=== PATIENT | male | born 1955 | race Caucasian/White ===

== ENCOUNTER 2018-05-29 12:03 | Outpatient (CLI) | payer OTHER ==
--- NOTE | 2018-05-29 14:28 | CT Report ---
Reason: ENCOUNTER FOR SCREENING FOR MALIGNANT NEOPLASM OF Procedure Date: 05/29/2018 Accession Number: [id number] / [id number] Procedure: CT - Low Dose Lung Cancer Screen CPT Code: FULL RESULT: EXAM CT LUNG SCREEN EXAM DATE: 05/29/2018 12:35 PM. HISTORY: 62-year-old patient with 30+-pack-year smoking history. Currently smoking: No. Years since quittin. COMPARISON: None. TECHNIQUE: CT examination of the entire thorax without contrast was performed using low-dose technique. Thin section coronal, axial, sagittal and MIP axial images were obtained. In accordance with CT protocol optimization, one or more of the following dose reduction techniques were utilized for this exam: automated exposure control, adjustment of mA and/or KV based on patient size, or use of iterative reconstructive technique. FINDINGS: Nodules: Right upper lobe: None. Right middle lobe: None. Right lower lobe: Subtle peribronchovascular tree-in-bud opacity seen at the medial aspect of the base (4/143) Left upper lobe: 3 mm lingular nodule (4/143). Left lower lobe: Subtle peribronchovascular groundglass opacities and tree-in-bud opacities seen at the left base (4/138). Emphysema: Mild apical centrilobular and paraseptal emphysema. Pleura: Unremarkable. Aorta: Unremarkable. Mediastinum: Unremarkable. Coronary calcifications: LAD coronary artery calcium deficiency. Other pulmonary findings: None. Other extrapulmonary findings: Nonobstructing left renal calculi are evident. IMPRESSION: Left greater than right basilar peribronchovascular mild groundglass and tree-in-bud opacities are seen in that could represent nonspecific bronchiolitis, likely infectious. Lung-RADS ASSESSMENT CATEGORY: 3S - probably benign RECOMMENDATION: Recommend follow-up with repeat chest CT within 3-6 months to assess for resolution. RADIA
== END 2018-05-29 12:04 | disposition home or self-care (01) ==
LOC: DI 12:03
PROVIDERS: ATTEND Physician Assistant
DX: Z12.2 Encounter for screening for malignant neoplasm of respiratory organs (principal); R91.8 Other nonspecific abnormal finding of lung field; J43.9 Emphysema, unspecified; Z87.891 Personal history of nicotine dependence

== ENCOUNTER 2018-09-01 11:31 | Outpatient (CLI) | payer OTHER ==
--- NOTE | 2018-09-02 13:22 | CT Report ---
Reason: CHRONIC OBSTRUCTIVE PULMONARY DISEASE,UNSPECIFIED Procedure Date: 09/01/2018 Accession Number: [id number] / [id number] Procedure: CT - CHEST WO CPT Code: FULL RESULT: EXAM: CT CHEST EXAM DATE: 09/01/2018 11:42 AM. CLINICAL HISTORY: Chronic obstructive pulmonary disease,unspecified. COMPARISONS: CHEST SCREEN LOW DOSE W/O 05/29/2018 12:20 PM ABD/PEL 12/01/2006 4:47 PM. TECHNIQUE: Routine helical CT imaging was performed through the chest. IV contrast: None. Reconstructions: Coronal and sagittal. In accordance with CT protocol optimization, one or more of the following dose reduction techniques were utilized for this exam: automated exposure control, adjustment of mA and/or KV based on patient size, or use of iterative reconstructive technique. FINDINGS: Lungs/Pleura: Scattered tree-in-bud opacities that were present on the prior exam, particularly in the left upper lobe are improved compared to the prior study. Nearly 4 mm nodule persists on series #4, image #28 in the medial left upper lobe. The centrilobular opacities in the medial right lower lobe are unchanged to slightly improved, and some mild bronchiectasis in the medial lower lobe bronchi is noted. Still scattered areas of mild bronchial wall thickening. Mild scattered areas of centrilobular emphysema and paraseptal emphysema. No effusions. No pneumothoraces. No intralobular septal thickening or architectural distortion is present at this time. Mediastinum: Normal. No adenopathy or masses. The heart and great vessels are normal. Bones: Unremarkable. Visualized Abdomen: Approximately 13 cm area of hypodensity in the right lobe of the liver extending into the median aspect of the left lobe. Difficult to further evaluate given lack of IV contrast, but appears new compared to the prior exams. Other: None. IMPRESSION: 1. No change to slight improvement in some centrilobular nodules, trace bronchiectasis and mild bronchial wall thickening, predominantly in the right lower lobe and left upper lobe. Compatible with persistent bronchiolitis. 2. Ill-defined area of decreased attenuation centered in the right lobe of the liver. Limited evaluation without IV contrast, and may represent some geographic steatosis, but underlying mass cannot be excluded. Would recommend an MRI of the liver for further evaluation. RADIA
== END 2018-09-01 11:32 | disposition home or self-care (01) ==
LOC: DI 11:31
PROVIDERS: ATTEND Physician Assistant
DX: J21.9 Acute bronchiolitis, unspecified (principal); J44.0 Chronic obstructive pulmonary disease with (acute) lower respiratory infection
CPT/HCPCS: 71250

== ENCOUNTER 2018-11-08 13:19 | Outpatient (CLI) | payer OTHER ==
--- NOTE | 2018-11-08 15:45 | CARDIAC PROCEDURE NOTE ---
DATE OF SERVICE: 11/08/2018 Physician: Ghada Dorman MD, [facility] INDICATIONS: Coronary atherosclerosis (patient reports "this was seen on CT imaging of his chest which was done to evaluate his lungs"). CARDIAC RISK FACTORS: Male gender, hypertension, elevated cholesterol, family history of heart disease, ex-cigarette smoker. PROCEDURE: After signing informed consent, the patient underwent a Derick- protocol treadmill stress test. No imaging was ordered with this test. Patient exercised for 3 minutes and 30 seconds. He achieved a peak heart rate of 98 (61% predicted maximum heart rate for age) and 5.2 METs. Patient described 14/20 on the Alex exertion scale at stage I, but severe 18/20 at the beginning of stage II. He was severely short of breath as well and the treadmill exercise was stopped because of shortness of breath. Patient had no chest pain. Oxygen saturation at peak exercise was 93% on room air. The patient had tripod breathing both on the treadmill during exercise and in recovery. EKG AT REST: Normal sinus rhythm, left atrial enlargement, otherwise within normal limits. EKG AT PEAK: No new ST segment or T-wave abnormalities, at this suboptimal peak heart rate, however. SUMMARY 1. Very poor exercise tolerance. 2. The patient did not discontinue his morning Metoprolol as was ordered, and he took both Metoprolol and Cardizem prior to this test, which made heart rate response blunted. 3. No imaging was ordered with this test. 4. This is an inconclusive test for coronary ischemia, due to inadequate heart rate response. RECOMMENDATIONS: Pharmaceutical stress testing with cardiac imaging is advised: either a Lexiscan nuclear stress test or a dobutamine stress echo. cc [facility] for [facility] at [phone] cc: Juanis Joyce PA-C TD: 11/08/2018 15:37 ISAIAS
== END 2018-11-08 13:20 | disposition home or self-care (01) ==
LOC: DI 13:19
PROVIDERS: ATTEND Physician Assistant
DX: I25.10 Atherosclerotic heart disease of native coronary artery without angina pectoris (principal)
CPT/HCPCS: 93017

== ENCOUNTER 2018-11-29 12:53 | Outpatient (CLI) | payer OTHER | END 2018-11-29 12:54 | disposition home or self-care (01) | LOC: DI 12:53 | PROVIDERS: ATTEND Nurse Practitioner Family | DX: J44.9 Chronic obstructive pulmonary disease, unspecified (principal); Z12.2 Encounter for screening for malignant neoplasm of respiratory organs; Z53.9 Procedure and treatment not carried out, unspecified reason ==

== ENCOUNTER 2019-01-31 10:58 | Outpatient (CLI) | payer OTHER ==
[2019-01-31] MEDS ORDERED: REGADENOSON 0.4 MG/5 ML SYRINGE IVP ONE ×2 (11:58→16:00)
[2019-01-31] MEDS ORDERED: AMINOPHYLLINE 250 MG/10 ML VIAL ONE (11:59)
--- NOTE | 2019-01-31 15:15 | CARDIAC PROCEDURE NOTE ---
DATE OF SERVICE: 01/31/2019 Physician: Ghada Dorman MD, [facility] INDICATIONS: Coronary atherosclerosis due to calcified coronary lesion. CARDIAC RISK FACTORS: Male gender, smoker, hypertension. The patient had CT imaging of his chest to evaluate his lungs and this showed coronary calcification. DESCRIPTION OF PROCEDURE: After signing informed consent, the patient underwent a Lexiscan pharmaceutical stress test with nuclear myocardial perfusion RESTING HEART RATE: 60. PEAK HEART RATE: 75. RESTING BLOOD PRESSURE: 137/98. PEAK BLOOD PRESSURE: 146/89. The patient underwent Lexiscan infusion per protocol. He developed flushing and significant shortness of breath, which lasted approximately 2 minutes. Oxygen saturation during this time was 94-97% on room air. He reported no chest pain. RESTING EKG: Normal sinus rhythm, left atrial enlargement, otherwise within normal limits. EKG AT PEAK: No new ST-segment or T-wave abnormalities. IMPRESSION 1. Essentially normal resting EKG. 2. No ischemic changes by EKG criteria during this pharmaceutical stress test. 3. Significant shortness of breath develops with Lexiscan, this is consistent with his COPD. 4. This patient's cardiac risk based on EKG criteria: Low. 5. Nuclear images reported separately. cc: Juanis Joyce PA-C [facility] , TD: 01/31/2019 15:05 MTDD
--- NOTE | 2019-02-02 09:52 | Nuclear Medicine Report ---
Reason: CALCIFICATION OF CORONARY ARTERY Procedure Date: 01/31/2019 Accession Number: [id number] / [id number] Procedure: NM - Myocardial Perfusion STR/RST CPT Code: Final Report FULL RESULT: EXAM: SINGLE-ISOTOPE PHARMACOLOGICAL STRESS TEST WITH REGADENOSON. SINGLE-ISOTOPE AND ONE-DAY REST/STRESS MYOCARDIAL PERFUSION SCANS WITH TOMOGRAPHIC IMAGING, QUANTITATIVE ANALYSIS, WALL MOTION ANALYSIS AND CALCULATION OF EJECTION FRACTION. EXAM DATE: 01/31/2019 04:03 PM. CLINICAL HISTORY: Calcification of coronary artery. COMPARISON: None available. TECHNIQUE: After the intravenous administration of 9.2 mCi of Tc-99m sestamibi, a rest myocardial perfusion scan was done with tomography. Motion correction was applied when appropriate. A pharmacological stress was performed with the infusion of 0.4 mg regadenoson per protocol. According to protocol, 42.1 mCi of Tc-99m sestamibi was injected for stress myocardial perfusion scan. Motion correction was applied when appropriate. Gated tomographic images were obtained for wall motion analysis and computation of left ventricular ejection fraction. FINDINGS: Images show a fixed apical perfusion defect. No convincing reversible perfusion defects are evident. Summed stress score 5 Summed rest score 4 Summed difference score 1 Wall motion analysis demonstrates no focal wall motion abnormality. The left ventricular end-diastolic volume is 106 cc. The left ventricular end-systolic volume is 50 cc. The left ventricular ejection fraction is calculated to be 53%. IMPRESSION: 1. Fixed apical perfusion defect. No convincing reversible perfusion defects. 2. Left ventricular ejection fraction of 53%. 3. Normal segmental and global wall motion. 4. Normal left ventricular cavity size, no change with stress. 5. Based on computer analysis, mildly abnormal study with no ischemia. Please correlate findings with stress ECG tracings and procedure notes. SHRUTI
== END 2019-01-31 10:59 | disposition home or self-care (01) ==
LOC: DI 10:58
PROVIDERS: ATTEND Physician Assistant
DX: R94.39 Abnormal result of other cardiovascular function study (principal); I25.84 Coronary atherosclerosis due to calcified coronary lesion; F17.200 Nicotine dependence, unspecified, uncomplicated; I10 Essential (primary) hypertension; J44.9 Chronic obstructive pulmonary disease, unspecified
CPT/HCPCS: 78452; 93017; A9500; J2785

== ENCOUNTER 2019-03-22 11:45 | Day surgery (SDC) | payer OTHER ==
[2019-03-22] MEDS ORDERED: LACTATED RINGERS 1,000 ML IV ONE (11:54)
--- NOTE | 2019-03-22 12:59 | ANESTHESIA ---
Pre-Anesthesia VS, & Labs - Diagnosis polyps - Procedure colonoscopy Vital Signs: Temp Pulse Resp BP Pulse Ox 36.5 C 79 16 143/106 H 97 03/22/19 11:55 03/22/19 11:55 03/22/19 11:55 03/22/19 11:55 03/22/19 11:55 Height 6 ft 1 in Weight (kg) 87.9 kg Body Mass Index 25.7 - NPO >8 hours Home Medications and Allergies Home Medications: Ambulatory Orders Diltiazem HCl [Diltiazem ER] 240 mg PO DAILY 03/14/19 Metoprolol Succinate 25 mg PO DAILY 03/14/19 Testosterone Cypionate 200 mg IM ONCE 03/14/19 hydroCHLOROthiazide [Hydrochlorothiazide] 25 mg PO DAILY 03/14/19 Diltiazem HCl [Diltiazem ER] 240 mg PO DAILY 03/14/19 Metoprolol Succinate 25 mg PO DAILY 03/14/19 Testosterone Cypionate 200 mg IM ONCE 03/14/19 hydroCHLOROthiazide [Hydrochlorothiazide] 25 mg PO DAILY 03/14/19 Allergies/Adverse Reactions: Allergies Allergy/AdvReac Type Severity Reaction Status Date / Time adhesive tape AdvReac blisters Verified 03/14/19 11:30 Opioids - Morphine Analogues AdvReac Nausea Verified 12/27/18 14:04 Anes History & Medical History - Anesthetic History Anesthesia Complications: reports: No previous complications - Medical History Cardiovascular: reports: Hypertension Pulmonary: reports: COPD, Emphysema, Sleep apnea Gastrointestinal: reports: Colon polyps Urinary: reports: Kidney stones Musculoskeletal: reports: Osteoarthritis Endocrine/Autoimmune: reports: None Skin: reports: None Smoking Status: Never smoker - Surgical History General: Colonoscopy, Other Eyes Ears Nose Throat (EENT): Other Orthopedic: Arthroscopic surgery, Other Exam General: Alert Dental: WNL Neck Mobility: Reduced Mallampati classification: II Thyromental Distance: greater than 6 cm Respiratory: Lungs clear Cardiovascular: Regular rate, Normal S1, Normal S2 Plan Anesthesia Type: MAC, Total IV Consent for Procedure(s) Verified and Reviewed: Yes Code Status: Attempt Resuscitation ASA classification: 3-Severe systemic disease Is this case an emergency?: No
[2019-03-22 14:23] VITALS: BP 137/107
== END 2019-03-22 11:46 | disposition home or self-care (01) ==
LOC: SDS 11:45
PROVIDERS: ATTEND Surgery
PROC: 0DBL8ZZ Excision of Transverse Colon, Via Natural or Artificial Opening Endoscopic (ICD-10-PCS; 2019-03-22)
PROC: 0DBP8ZZ Excision of Rectum, Via Natural or Artificial Opening Endoscopic (ICD-10-PCS; 2019-03-22)
PROC: 0DBC8ZZ Excision of Ileocecal Valve, Via Natural or Artificial Opening Endoscopic (ICD-10-PCS; 2019-03-22)
PROC: 0DBK8ZZ Excision of Ascending Colon, Via Natural or Artificial Opening Endoscopic (ICD-10-PCS; principal; 2019-03-22 13:30)
DX: Z12.11 Encounter for screening for malignant neoplasm of colon (principal); D12.2 Benign neoplasm of ascending colon; D12.3 Benign neoplasm of transverse colon; K62.1 Rectal polyp; J43.9 Emphysema, unspecified; G47.33 Obstructive sleep apnea (adult) (pediatric); I10 Essential (primary) hypertension; F12.10 Cannabis abuse, uncomplicated; I25.10 Atherosclerotic heart disease of native coronary artery without angina pectoris; Z87.891 Personal history of nicotine dependence
CPT/HCPCS: 45385; J7120

== ENCOUNTER 2019-08-01 10:11 | Outpatient (CLI) | payer OTHER ==
[2019-08-01 10:25] LABS: BASOPHILS # (AUTO) 0.1 10^3/uL (0.0-0.1); BASOPHILS % (AUTO) 1.1 %; EOSINOPHILS # (AUTO) 0.1 10^3/uL (0.0-0.7); EOSINOPHILS % (AUTO) 0.9 %; HGB - HEMOGLOBIN 19.6 g/dL (14.0-18.0); LYMPHOCYTES # (AUTO) 2.8 10^3/uL (1.5-3.5); LYMPHOCYTES % (AUTO) 35.2 %; MEAN CORPUSCULAR HEMOGLOBIN 29.4 pg (27.0-31.0); MEAN CORPUSCULAR HGB CONC 33.2 g/dL (32.0-36.0); MEAN CORPUSCULAR VOLUME 88.6 fL (80.0-94.0); MONOCYTES # (AUTO) 0.6 10^3/uL (0.0-1.0); MONOCYTES % (AUTO) 7.5 %; NEUTROPHILS # (AUTO) 4.3 10^3/uL (1.5-6.6); PLT - PLATELET COUNT 177 10^3/uL (130-450); RED BLOOD COUNT 6.67 10^6/uL (4.70-6.10); RED CELL DISTRIBUTION WIDTH 15.8 % (12.0-15.0); WHITE BLOOD COUNT 7.9 x10^3/uL (4.8-10.8)
[2019-08-01 11:13] LABS: BILIRUBIN,URINE NEGATIVE (NEGATIVE); GLUCOSE, URINE (UA) NEGATIVE (NEGATIVE); KETONES,URINE (UA) NEGATIVE (NEGATIVE); LEUKOCYTE ESTERASE, URINE NEGATIVE (NEGATIVE); NITRITE,URINE NEGATIVE (NEGATIVE); OCCULT BLOOD,URINE TRACE-INTA (NEGATIVE); PROTEIN,URINE NEGATIVE (NEGATIVE); UROBILINOGEN,URINE 1 (NORMAL) E.U./dL (NORMAL)
[2019-08-01 11:17] LABS: CLARITY,URINE CLEAR (CLEAR)
== END 2019-08-01 10:12 | disposition home or self-care (01) ==
LOC: LAB 10:11
PROVIDERS: ATTEND Physician Assistant
DX: D75.1 Secondary polycythemia (principal)
CPT/HCPCS: 36415; 81001; 81003; 82668; 85025; 87086

== ENCOUNTER 2019-10-28 17:47 | Outpatient (CLI) | payer OTHER, MEDICARE ==
--- NOTE | 2019-10-28 19:38 | Ultrasound Report ---
PROCEDURE: Retroperitoneal INDICATIONS: BENIGN PROSTATICS HYPERPLASIA TECHNIQUE: Real-time scanning was performed of the retroperitoneal organs, with image documentation. COMPARISON: None. FINDINGS: Bladder: Prevoid bladder volume is 371.25 mL. Post void residual is 78.3 mL. No gross bladder wall abnormality is seen. Bilateral ureteral jets are noted during the study. Prostate gland measures 4.5 x 4.3 x 4.5 cm in size and show mild mass effect on floor of urinary bladder. IMPRESSION: No gross bladder wall thickening or discrete bladder wall mass. Enlarged prostate gland with mild mas s effect on floor of urinary bladder. Moderate amount of post void residual. Reviewed by: Fuad Shaffer MD on 10/28/2019 7:36 PM PDT Approved by: Fuad Shaffer MD on 10/28/2019 7:36 PM PDT Station ID: [id number]
== END 2019-10-28 17:48 | disposition home or self-care (01) ==
LOC: DI 17:47
PROVIDERS: ATTEND Family Medicine
DX: N40.0 Benign prostatic hyperplasia without lower urinary tract symptoms (principal)
CPT/HCPCS: 76770